=== PATIENT | female | born 1950 ===

== ENCOUNTER 2016-11-10 17:54 | Emergency (ER) | payer MEDICARE, MEDICAID ==
[~2016-11-10 17:54] MED LIST: ALBUTEROL2.5 MG/3 M PO; AMLODIPINE BES2.5 M1 PO; ASPIRIN EC81 MG PO; CARAFATE1 G1 PO; CARVEDILOL3.125 MG PO; CARVEDILOL6.25 M1 PO; CEROVITE ADVANC1 TAB PO; CHLORHEXIDINE473 M1 SSP; CLARITIN10 M6 PO; COUMADIN2.5 MG PO; DILAUDID2 MG PO; DIOVAN PO; DULCOLAX10 MG/SUPP RC; ESCITALOPRAM OX20 M1 PO; ESTRACE42.5 GM VG; FLEXERIL10 MG PO; FOLIC ACID1 M1 PO; GLUCOPHAGE500 M3 PO; GUAIFENESIN PO; HYDROCHLOROTHIA25 MG PO; HYDROCODON-ACE1 EA16 PO; HYDROCODON-ACE1 EA17 PO; HYDROCODON-ACE1 EAC7 PO; HYDROCODON-ACE1 EAC8 PO; IRON325 M1 PO; IRON325 M3 PO; LEVAQUIN750 M1 PO; LEVAQUIN750 MG PO; LIDODERM1 EACH TP; LIDODERM30 EA TP; LIPITOR20 M1 PO; LISINOPRIL20 MG PO; LOVENOX40 MG/0.4 SQ; LYRICA150 MG/CAP PO; LYRICA200 M1 PO; Lidoderm TP; MACROBID 100 M100 MG PO; MELOXICAM15 MG PO; METHOTREXATE; METHOTREXATE2.5 M1 PO; METHOTREXATE2.5 MG PO; MILK OF MAGNES311 MG PO; MILK OF MAGNESIA PO; NITROFURANTOIN100 MG PO; NORCO 5-325 TA1 EACH PO; NORCO 5/325 TAB1 TAB PO; NORCO 7.5-3251 EACH PO; OMEPRAZOLE20 M3 PO; OXYCODONE/APAP PO; OYSTER CALCIUM500 MG PO; PERCOCET 5/3251 TAB PO; PREDNISONE10 MG PO; PREDNISONE20 M1 PO; PREDNISONE5 M1 PO; PREDNISONE5 MG PO; PRILOSEC20 MG PO; PROTONIX20 M2 PO; PROTONIX40 M1 PO; SENOKOT-S TABL1 EACH PO; SENOKOT-S TABLE1 TAB PO; SUCRALFATE1 G PO; SYMBICORT 160-1 PUFF INH; SYSTANE 0.3-0.415 ML EACH EYE; TOBRAMYCIN300 MG/7.5 INH; TRAMADOL HCL50 M2 PO; TRAZODONE50 MG PO; TUMS200 MG PO; TYLENOL325 MG PO; TYLENOL500 MG PO; VENTOLIN HFA18 G2 INH; VITAMIN D250000 UNI1 PO; VITAMIN D35000 UNIT PO; ZOCOR40 M1 PO; [UNRECOGNIZED DRUG - OTHER]
[2016-11-10] MEDS ORDERED: CIPROFLOXACIN750 M1 PO (19:51)
[2016-11-10] MEDS ORDERED: PREDNISONE10 M1 PO (19:52)
[2016-11-10 20:31] LABS: BASO % 0.1 % (0-2); EOS % 0.4 % (0-7); EOSINOPHIL ABSOLUTE COUNT 0.1 tho/cmm (0.0-0.7); HCT-HEMATOCRIT 34.3 % (34.0-49.0); HGB-HEMOGLOBIN 10.8 gm/dl (12.0-15.5); IMMATURE GRANULOCYTES ABSOLUTE 0.12 tho/cmm (0-0.03); LYMPH % 13.6 % (20-45); LYMPH ABSOLUTE COUNT 1.6 tho/cmm (0.8-4.5); MCH (MEAN CORPUSCULAR HGB) 28.4 pg (28.0-32.0); MCHC MEAN CORPUSCULAR HGB CONC 31.5 % (32.0-36.0); MCV (MEAN CELL VOLUME) 90.3 fl (82.0-96.0); MEAN PLATELET VOLUME 9.9 cmc (9.4-12.4); MONOCYTE ABSOLUTE COUNT 0.8 tho/cmm (0.0-1.2); NEUTROPHIL ABSOLUTE COUNT 9.3 tho/cmm (1.6-8.0); NEUTROPHIL-AUTOMATED 9.3 tho/cmm (1.6-8.0); NEUTROPHILS % 77.9 % (40-80); PLATELET COUNT 427 tho/cmm (150-450); RED CELL DISTRIBUTION WIDTH 16.8 % (12.4-16.4); WHITE BLOOD COUNT 11.9 tho/cmm (4.0-10.0)
[2016-11-10 20:50] LABS: ALB/GLOB RATIO 0.4 (0.8-2.0); ALBUMIN 2.2 g/dl (3.5-5.0); ALKALINE PHOSPHATASE 81 U/L (33-138); ALT/SGPT 31 U/L (12-78); ANION GAP 15 mmol/L (0-20); AST/SGOT 18 U/L (10-40); BILIRUBIN,TOTAL 0.3 mg/dl (0-1.5); BLOOD UREA NITROGEN 33 mg/dl (6-24); CARBON DIOXIDE-VENOUS 24 mmol/L (22-32); CHLORIDE 97 mmol/l (96-110); CREATININE 1.18 mg/dl (0.50-1.10); GLUCOSE 378 mg/dL (70-110); POTASSIUM 5.3 mmol/L (3.7-5.1); SODIUM 131 mmol/L (135-145); eGFR VALUE FOR BLACK 56 mL/Min
[2016-11-10 21:14] LABS: URINE BILIRUBIN NEGATIVE (NEG); URINE BLOOD SMALL (NEG); URINE GLUCOSE (UA) LARGE (NEG); URINE KETONE NEGATIVE (NEG); URINE LEUKOCYTE ESTERASE NEGATIVE (NEG); URINE NITRITE NEGATIVE (NEG); URINE PH 6.5 (5.0-8.0); URINE PROTEIN SMALL (NEG)
[2016-11-10 21:15] LABS: URINE APPEARANCE CLEAR; URINE COLOR YELLOW
[2016-11-10 21:21] LABS: URINE WBC 0 /[HPF] (0-5)
[2016-11-10 21:22] LABS: URINE EPITHELIAL CELLS 0 /[HPF] (0-10)
== END 2016-11-10 22:15 ==
LOC: EDMED 17:54
PROVIDERS: Emergency Medicine
DX: E11.65 Type 2 diabetes mellitus with hyperglycemia (principal); J44.9 Chronic obstructive pulmonary disease, unspecified; M19.90 Unspecified osteoarthritis, unspecified site; Z79.51 Long term (current) use of inhaled steroids; Z79.899 Other long term (current) drug therapy

== ENCOUNTER 2016-11-12 10:20 | Inpatient (IN) | payer MEDICARE, MEDICAID ==
[~2016-11-12 10:20] MED LIST changes: +CIPROFLOXACIN750 M1 PO; +PREDNISONE10 M1 PO
[2016-11-12 11:21] LABS: ABG CO2 ARTERIAL 24 mmol/L (21-27); ARTERIAL BLD GAS O2 SATURATION 86 % (95-98); ARTERIAL BLOOD GAS PCO2 41 mmHg (32-45); ARTERIAL PO2 55 mmHg (70-100); BICARBONATE 23 mmol/L (21-28); BLOOD GAS BASE EXCESS -2 mM/L (-/+3); PH 7.37 Units (7.35-7.45)
[2016-11-12 11:29] LABS: BASO % 0.1 % (0-2); EOS % 0.2 % (0-7); EOSINOPHIL ABSOLUTE COUNT 0.1 tho/cmm (0.0-0.7); HCT-HEMATOCRIT 32.3 % (34.0-49.0); HGB-HEMOGLOBIN 10.3 gm/dl (12.0-15.5); IMMATURE GRANULOCYTES ABSOLUTE 0.26 tho/cmm (0-0.03); IMMATURE GRANULOCYTES PERCENT 1.2 % (0-0.3); LYMPH % 5.2 % (20-45); LYMPH ABSOLUTE COUNT 1.1 tho/cmm (0.8-4.5); MCH (MEAN CORPUSCULAR HGB) 28.8 pg (28.0-32.0); MCHC MEAN CORPUSCULAR HGB CONC 31.9 % (32.0-36.0); MCV (MEAN CELL VOLUME) 90.2 fl (82.0-96.0); MEAN PLATELET VOLUME 10.5 cmc (9.4-12.4); MONO % 2.4 % (0-12); MONOCYTE ABSOLUTE COUNT 0.5 tho/cmm (0.0-1.2); NEUTROPHIL ABSOLUTE COUNT 19.1 tho/cmm (1.6-8.0); NEUTROPHIL-AUTOMATED 19.1 tho/cmm (1.6-8.0); NEUTROPHILS % 90.9 % (40-80); PLATELET COUNT 460 tho/cmm (150-450); RED BLOOD COUNT 3.58 mil/cmm (4.00-5.20); RED CELL DISTRIBUTION WIDTH 16.6 % (12.4-16.4)
[2016-11-12 11:46] LABS: WHITE BLOOD COUNT 21.1 tho/cmm (4.0-10.0)
[2016-11-12 11:47] LABS: ALB/GLOB RATIO 0.4 (0.8-2.0); ALBUMIN 2.1 g/dl (3.5-5.0); ALKALINE PHOSPHATASE 67 U/L (33-138); ALT/SGPT 23 U/L (12-78); ANION GAP 16 mmol/L (0-20); AST/SGOT 14 U/L (10-40); BLOOD UREA NITROGEN 40 mg/dl (6-24); CALCIUM 9.6 mg/dl (8.5-10.5); CARBON DIOXIDE-VENOUS 24 mmol/L (22-32); CHLORIDE 95 mmol/l (96-110); GLUCOSE 334 mg/dL (70-110); SODIUM 130 mmol/L (135-145)
[2016-11-12] MEDS ORDERED: NORCO 7.5-3251 EACH PO (11:51)
[2016-11-12 11:52] LABS: BILIRUBIN,TOTAL 0.5 mg/dl (0-1.5); CREATININE 1.48 mg/dl (0.50-1.10); eGFR VALUE FOR BLACK 43 mL/Min
[2016-11-12 12:13] LABS: PROCALCITONIN 0.35 ng/ml (0.05-0.09)
[2016-11-12] MEDS ORDERED: VITAMIN D250000 UNI1 PO (12:43)
[2016-11-12 14:20] LABS: URINE BILIRUBIN NEGATIVE (NEG); URINE BLOOD NEGATIVE (NEG); URINE GLUCOSE (UA) MODERATE (NEG); URINE KETONE NEGATIVE (NEG); URINE LEUKOCYTE ESTERASE NEGATIVE (NEG); URINE NITRITE NEGATIVE (NEG); URINE PROTEIN NEGATIVE (NEG); URINE SPECIFIC GRAVITY 1.015 (1.003-1.030)
[2016-11-12 14:22] LABS: URINE APPEARANCE CLEAR; URINE COLOR YELLOW
[2016-11-12 21:50] LABS: KETONE-BETA (WHOLE BLOOD) 0.1 mmol/L (0.0-0.6)
[2016-11-13 05:43] LABS: BASO % 0.1 % (0-2); HCT-HEMATOCRIT 31.2 % (34.0-49.0); HGB-HEMOGLOBIN 9.8 gm/dl (12.0-15.5); IMMATURE GRANULOCYTES ABSOLUTE 0.19 tho/cmm (0-0.03); IMMATURE GRANULOCYTES PERCENT 1.5 % (0-0.3); LYMPH % 11.8 % (20-45); LYMPH ABSOLUTE COUNT 1.5 tho/cmm (0.8-4.5); MCH (MEAN CORPUSCULAR HGB) 28.5 pg (28.0-32.0); MCHC MEAN CORPUSCULAR HGB CONC 31.4 % (32.0-36.0); MCV (MEAN CELL VOLUME) 90.7 fl (82.0-96.0); MEAN PLATELET VOLUME 9.7 cmc (9.4-12.4); MONO % 2.8 % (0-12); MONOCYTE ABSOLUTE COUNT 0.3 tho/cmm (0.0-1.2); NEUTROPHIL ABSOLUTE COUNT 10.4 tho/cmm (1.6-8.0); NEUTROPHIL-AUTOMATED 10.4 tho/cmm (1.6-8.0); NEUTROPHILS % 83.8 % (40-80); PLATELET COUNT 466 tho/cmm (150-450); RED BLOOD COUNT 3.44 mil/cmm (4.00-5.20); RED CELL DISTRIBUTION WIDTH 16.7 % (12.4-16.4); WHITE BLOOD COUNT 12.4 tho/cmm (4.0-10.0)
[2016-11-13 06:00] LABS: ANION GAP 14 mmol/L (0-20); BLOOD UREA NITROGEN 37 mg/dl (6-24); CALCIUM 8.5 mg/dl (8.5-10.5); CARBON DIOXIDE-VENOUS 23 mmol/L (22-32); CHLORIDE 104 mmol/l (96-110); CREATININE 1.08 mg/dl (0.50-1.10); GLUCOSE 378 mg/dL (70-110); POTASSIUM 4.4 mmol/L (3.7-5.1); SODIUM 137 mmol/L (135-145); eGFR VALUE FOR BLACK 62 mL/Min
[2016-11-14 06:39] LABS: BASO % 0.1 % (0-2); EOS % 0.6 % (0-7); EOSINOPHIL ABSOLUTE COUNT 0.1 tho/cmm (0.0-0.7); HCT-HEMATOCRIT 29.7 % (34.0-49.0); HGB-HEMOGLOBIN 9.1 gm/dl (12.0-15.5); IMMATURE GRANULOCYTES ABSOLUTE 0.15 tho/cmm (0-0.03); IMMATURE GRANULOCYTES PERCENT 1.3 % (0-0.3); LYMPH % 14.6 % (20-45); LYMPH ABSOLUTE COUNT 1.7 tho/cmm (0.8-4.5); MCH (MEAN CORPUSCULAR HGB) 28.5 pg (28.0-32.0); MCHC MEAN CORPUSCULAR HGB CONC 30.6 % (32.0-36.0); MCV (MEAN CELL VOLUME) 93.1 fl (82.0-96.0); MEAN PLATELET VOLUME 10.3 cmc (9.4-12.4); MONO % 5.8 % (0-12); MONOCYTE ABSOLUTE COUNT 0.7 tho/cmm (0.0-1.2); NEUTROPHIL ABSOLUTE COUNT 8.9 tho/cmm (1.6-8.0); NEUTROPHIL-AUTOMATED 8.9 tho/cmm (1.6-8.0); NEUTROPHILS % 77.6 % (40-80); PLATELET COUNT 492 tho/cmm (150-450); RED BLOOD COUNT 3.19 mil/cmm (4.00-5.20); RED CELL DISTRIBUTION WIDTH 16.8 % (12.4-16.4); WHITE BLOOD COUNT 11.5 tho/cmm (4.0-10.0)
[2016-11-14 06:54] LABS: ANION GAP 13 mmol/L (0-20); BLOOD UREA NITROGEN 25 mg/dl (6-24); CALCIUM 8.1 mg/dl (8.5-10.5); CARBON DIOXIDE-VENOUS 25 mmol/L (22-32); CHLORIDE 109 mmol/l (96-110); CREATININE 1.01 mg/dl (0.50-1.10); GLUCOSE 323 mg/dL (70-110); POTASSIUM 4.6 mmol/L (3.7-5.1); SODIUM 142 mmol/L (135-145); eGFR VALUE FOR BLACK 68 mL/Min
[2016-11-16 05:51] LABS: HGB-HEMOGLOBIN 9.5 gm/dl (12.0-15.5); PLATELET COUNT 520 tho/cmm (150-450)
[2016-11-17] MEDS ORDERED: GLUCOTROL5 M1 PO (07:51)
[2016-11-17] MEDS ORDERED: STOP THE FOLLOWING (07:52)
[2016-11-17] MEDS ORDERED: LEVAQUIN750 M1 PO (16:00)
== END 2016-11-17 16:40 | DRG 177 ==
LOC: EDMED 10:20 → EMR2 13:22 → 5WE 15:15
PROVIDERS: Emergency Medicine; Family Medicine; Registered Nurse; ADMIT Family Medicine
DX: J15.1 Pneumonia due to Pseudomonas (principal); J96.01 Acute respiratory failure with hypoxia; N17.9 Acute kidney failure, unspecified; D63.8 Anemia in other chronic diseases classified elsewhere; E11.9 Type 2 diabetes mellitus without complications; I10 Essential (primary) hypertension; E87.1 Hypo-osmolality and hyponatremia; J44.1 Chronic obstructive pulmonary disease with (acute) exacerbation; Q21.1 Atrial septal defect; E87.8 Other disorders of electrolyte and fluid balance, not elsewhere classified; G47.33 Obstructive sleep apnea (adult) (pediatric); K21.9 Gastro-esophageal reflux disease without esophagitis; M06.9 Rheumatoid arthritis, unspecified; M19.90 Unspecified osteoarthritis, unspecified site
CPT/HCPCS: J0456; J0696; J1650; J1815; J1940; J1956; J2250; J2270; J2543; J2930; J3010; J7030; J7050; Q9967